=== PATIENT | female | born 1990 | race Caucasian/White ===

== ENCOUNTER 2017-04-22 10:46 | Emergency (ER) | payer OTHER ==
--- NOTE | 2017-04-22 11:57 | EDPHY ---
H & P Stated Complaint: vomiting after hitting head on rock steps Source: Patient, Family - Personal History LMP (Females 10-55): IUD In Place Current Tetanus/Diphtheria Vaccine: Yes Current Tetanus Diphtheria and Acellular Pertussis (TDAP): Yes - Medical/Surgical History Hx Asthma: No Hx Chronic Respiratory Disease: No Hx Diabetes: No Hx Cardiac Disease: No Hx Renal Disease: No Hx Cirrhosis: No Hx Alcoholism: No Hx HIV/AIDS: No Hx Splenectomy or Spleen Trauma: No Other PMH: PMH: kidney stones, tonselectomy, migrianes, ovarian cysts Time Seen by Provider: 04/22/17 11:41 HPI/ROS: CHIEF COMPLAINT: Nausea vomiting after fall HISTORY OF PRESENT ILLNESS: This is a 26-year-old female presenting to the emergency department complaining of constant vomiting since 2299 last night. Patient states her friends were at a concert at [employer] yesterday evening drinking alot of alcohol, patient tripped over rope and falling. Friends stated around 2129 she states fell hit her head on one of the rock bench's questionable if there was any LOC, EMS arrived evaluated patient patient refused any transport last night. Patient states she has been intermittently vomiting since since 2299, unable to tolerate any PO intake today. Ambulatory to exam REVIEW OF SYSTEMS: Constitutional: No fever, no chills. Eyes: No discharge. No blurred vision ENT: No sore throat. Cardiovascular: No chest pain, no palpitations. Respiratory: No cough, no shortness of breath. Gastrointestinal: No abdominal pain. Nausea vomiting Genitourinary: No hematuria. Musculoskeletal: No back pain. Skin: No rashes. Neurological: No headache. (Carley Ferrell) - Physical Exam Exam: General Appearance: Alert, no distress. Head/Eyes: Abrasion noted to the left side of her forehead. No contusion noted Pupils equal and round no pallor or injection. ENT, Mouth: Mucous membranes moist. No oral injuries noted. No malocclusion Respiratory: There are no retractions, lungs are clear to auscultation. Cardiovascular: Regular rate and rhythm. Gastrointestinal: Abdomen is soft and nontender, no masses, bowel sounds normal. Neurological: No focal deficits. All cranial nerves intact Skin: Warm and dry, no rashes. Musculoskeletal: Vertebral cervical spine nontender on palpation. Full range of motion Extremities: Abrasion noted to her right elbow, no obvious deformity symmetrical, full range of motion. Positive CMS intact Psychiatric: Patient is oriented X 3, there is no agitation. (Carley Ferrell) Constitutional: Initial Vital Signs Temperature (C) 36.5 C 04/22/17 10:51 Heart Rate 79 04/22/17 10:51 Respiratory Rate 16 04/22/17 10:51 Blood Pressure 196/181 H 04/22/17 10:51 O2 Sat (%) 100 04/22/17 10:51 O2 Delivery Mode Room Air Allergies/Adverse Reactions: No Known Allergies Allergy (Unverified 04/22/17 10:54) Home Medications: Medication Instructions Recorded NK [No Known Home Meds] 04/22/17 Medical Decision Making ED Course/Re-evaluation: Discussed ED plan of care: IV Zofran, IV fluids, also discussed CT head patient at this time is deciding whether not she wants to have imaging. 1230: discussed with patient CT head imaging, patient is declining any kind of imaging any Zofran at this time she states" I am feeling somewhat better could of been more less the alcohol along with a concussion" during the discussion told patient that we could not r/o brain brain bleed, patient once again was fine with no imaging and she would like to go home. 1250: Discharge home, NAD, well-appearing no neuro deficits no nausea vomiting at this time. Closed head injury/concussion precautions given. Stable---> discussed discharge instructions (Carley Ferrell) I did not see this patient while she was in the emergency department. However her care was discussed with the nurse practitioner while the patient was in the department. I agree with treatment plan and management (Dilip No) Differential Diagnosis: Other differential diagnosis considered but not limited to a fracture, subarachnoid hemorrhage, and alcohol withdrawal (Carley Ferrell) - Data Points Medications Given: Discontinued Medications Ondansetron HCl (Zofran) 4 mg IVP EDNOW ONE Stop: 04/22/17 12:01 Last Admin: 04/22/17 12:11 Dose: Not Given Departure - Departure Disposition: Home, Routine, Self-Care Clinical Impression: Concussion Condition: Good Instructions: Concussion (ED), Post Concussion Syndrome (ED) Additional Instructions: Discussed discharge instructions with patient 1. Closed head injury and concussion precautions given 2. Patient is stated she will follow up with her doctor back home in [place] this week 3. If any worsening symptoms blurred vision, headache, loss of balance, AMS return to the ER Referrals: NONE *PRIMARY CARE P,. [Primary Care Provider] - As per Instructions [facility],. [Clinic] - As per Instructions
[2017-04-22] MEDS ORDERED: ONDANSETRON 4 MG/2 ML VIAL IVP ONE (12:00)
[2017-04-22 13:02] VITALS: BP 137/67; PULSE 82; RESP 20; TEMP 98.2; O2SAT 95
== END 2017-04-22 13:06 | disposition home or self-care (01) ==
DX: S06.0X0A Concussion without loss of consciousness, initial encounter (principal); W01.198A Fall on same level from slipping, tripping and stumbling with subsequent striking against other object, initial encounter; Y92.89 Other specified places as the place of occurrence of the external cause
CPT/HCPCS: J2405